=== PATIENT | male | born 1995 | race Caucasian/White ===

== ENCOUNTER 2016-07-28 23:30 | Emergency (ER) | payer SELFPAY ==
[2016-07-28 23:35] VITALS: TEMP 98.4
[2016-07-28] MEDS ORDERED: IBUPROFEN 600 MG TAB PO ONE (23:36)
--- NOTE | 2016-07-29 00:52 | EDPHY ---
H & P Smoking Status: Never smoked Time Seen by Provider: 07/29/16 00:44 HPI/ROS: CHIEF COMPLAINT: Toothache HISTORY OF PRESENT ILLNESS: This is a 20-year-old male presenting to the emergency department complaining of toothache that has progressed to headache. Patient states he has been having problems with his wisdom teeth but has worsened over the past 2-3 days, pain radiates to left ear. denies any fever nausea vomiting. Patient did take Tylenol but states did help REVIEW OF SYSTEMS: Constitutional: No fever, no chills. Eyes: No discharge. ENT: No sore throat. Tooth ache Cardiovascular: No chest pain, no palpitations. Respiratory: No cough, no shortness of breath. Gastrointestinal: No abdominal pain, no vomiting. Genitourinary: No difficulty urinating Musculoskeletal: No back pain. Skin: No rashes. Neurological: headache. (Carol Her) Physical Exam: General Appearance: Alert and no distress. HEENT: Pupils equal and round no injection. TMs normal bilaterally. Dental caries noted mandibular and maxillary wisdom teeth. No trismus, no mastoiditis no facial swelling Respiratory: Chest is nontender, lungs are clear to auscultation. Cardiac: regular rate and rhythm Gastrointestinal: Abdomen is soft and nontender, no masses Musculoskeletal: Neck is supple and nontender. Extremities have full range of motion and are nontender. Skin: No rashes or lesions. (Carol Her) Constitutional: Initial Vital Signs Temperature (C) 36.9 C 07/28/16 23:32 Heart Rate 97 07/28/16 23:32 Respiratory Rate 16 07/28/16 23:32 Blood Pressure 132/88 H 07/28/16 23:32 O2 Sat (%) 98 07/28/16 23:32 O2 Delivery Mode Room Air Allergies/Adverse Reactions: No Known Allergies Allergy (Unverified 07/28/16 23:32) Home Medications: Medication Instructions Recorded Penicillin V Potassium [Penicillin 500 mg PO TID #30 tablet 07/29/16 VK] oxyCODONE/APAP 5/325 [Percocet 1 - 2 tab PO Q6H PRN #10 tab 07/29/16 5/325 (*)] Medical Decision Making ED Course/Re-evaluation: Discussed ED plan of care: Pain medicine, 1st dose of antibiotics given 1300: Discussed following up with dental clinic this week. Discharge home---> stable, discussed discharge instructions (Carol Her) Differential Diagnosis: Other differential diagnosis considered but not limited to dental abscess, mastoiditis, and otitis media (Carol Her) Other Provider: PHYSICIAN DOCUMENTATION: The patient was evaluated and managed by the Physician Sorting And Folding Supervisor. My co- signature indicates that I have reviewed this chart and I agree with the findings and plan of care as documented. I am the secondary supervising physician. (Heather Hartley) - Data Points Medications Given: Discontinued Medications Ibuprofen (Motrin) 600 mg PO EDNOW ONE Stop: 07/28/16 23:37 Last Admin: 07/28/16 23:44 Dose: 600 mg Oxycodone/Acetaminophen (Percocet 5/325) 2 tab PO EDNOW ONE Stop: 07/29/16 00:54 Last Admin: 07/29/16 01:20 Dose: 2 tab Oxycodone/Acetaminophen (Percocet 5/325mg Prepack#4) 1 btl TAKEHOME EDNOW ONE Stop: 07/29/16 00:58 Last Admin: 07/29/16 01:20 Dose: 1 btl Penicillin V Potassium (Pen Vk) 500 mg PO EDNOW ONE PRN Reason: Protocol Stop: 07/29/16 00:54 Last Admin: 07/29/16 01:39 Dose: 500 mg Departure - Departure Disposition: Home, Routine, Self-Care Clinical Impression: Tooth ache, Dental infection Condition: Good Instructions: Oxycodone/Acetaminophen (By mouth), Dental Caries (ED), Toothache (ED) Additional Instructions: Discussed discharge instructions 1. Take antibiotics as prescribed 2. Follow up with the dental clinic this week, [facility] or [facility] for further evaluation of dental caries 3. You can also take ibuprofen 600 mg every 6-8 hours as needed 4. Orajel around the gum and tooth this can help alleviate some pain Referrals: NONE *PRIMARY CARE P,. [Primary Care Provider] - As per Instructions [facility],. [Clinic] - As per Instructions Prescriptions: oxyCODONE/APAP 5/325 [Percocet 5/325 (*)] 1 - 2 tab PO Q6H PRN #10 tab PRN Reason: Pain, Severe Penicillin V Potassium [Penicillin VK] 500 mg PO TID #30 tablet
[2016-07-29] MEDS ORDERED: OXYCODONE/APAP 5/325 TAB PO ONE (00:53)
[2016-07-29] MEDS ORDERED: PENICILLIN VK 500 MG TAB PO ONE (00:53)
[2016-07-29] MEDS ORDERED: OXYCODONE/APAP 5/325MG PREPACK#4 BTL TAKEHOME ONE (00:57)
[2016-07-29 01:40] VITALS: BP 138/86; PULSE 94; RESP 14; O2SAT 92
== END 2016-07-29 01:39 | disposition home or self-care (01) ==
DX: K04.7 Periapical abscess without sinus (principal)